=== PATIENT | female | born 1945 | race Caucasian/White ===

== ENCOUNTER → 2019-07-07 | Outpatient (CLI) | payer OTHER ==
[~2019-07-07] MED LIST: ASPI-555 PO; CHOL100044 PO; CLOP75TA14 PO; GLIM2TAB3 PO; HYDR12.54 PO; INSLAN SQ; LIRA0.6P SQ; LOSA50TA64 PO; METF-444 PO; METO25TA3 PO; PRAV40TA3 PO
== END | disposition home or self-care (01) ==
LOC: SHCH 09:15
PROVIDERS: ATTEND Internal Medicine Cardiovascular Disease
DX: I06.9 Rheumatic aortic valve disease, unspecified (principal); I10 Essential (primary) hypertension
CPT/HCPCS: 93306

== ENCOUNTER → 2019-08-02 | Outpatient (CLI) | payer OTHER ==
[~2019-08-02] MED LIST changes: -GLIM2TAB3 PO; +GLIM2TAB4 PO
== END | disposition home or self-care (01) ==
LOC: RAH 13:06
PROVIDERS: ATTEND Internal Medicine Cardiovascular Disease
DX: I65.23 Occlusion and stenosis of bilateral carotid arteries (principal); I10 Essential (primary) hypertension
CPT/HCPCS: 93880

== ENCOUNTER 2023-01-31 00:32 | Emergency (ER) | payer MEDICARE, OTHER ==
[~2023-01-31] VITALS: Ht 157.5 cm; Wt 83.0 kg
[~2023-01-31 00:32] MED LIST changes: -ASPI-555 PO; +ASPI-556 PO; +CLOP-31 PO; -CLOP75TA14 PO; +GLIM2TAB30 PO; -GLIM2TAB4 PO
[2023-01-31 01:14] LABS: BASOPHILS % (AUTO) 0.4 % (0.0-5.0); EOSINOPHILS % (AUTO) 1.9 % (0.0-8.0); HEMATOCRIT 40.8 % (36-48); LYMPHOCYTES % (AUTO) 41.1 % (21.0-51.0); MEAN CORPUSCULAR HEMOGLOBIN 27.4 pg (27.0-33.0); MEAN CORPUSCULAR HGB CONC 32.6 g/dL (32.0-36.0); MONOCYTES % (AUTO) 8.4 % (3.0-13.0); NEUTROPHILS % (AUTO) 48.1 % (40.0-77.0); PLATELET COUNT (AUTO) 242 K/uL (130-400); RED BLOOD CELL COUNT(AUTO) 4.86 MIL/uL (4.00-5.50); RED CELL DISTRIBUTION WIDTH 13.8 % (11.0-15.5); WHITE BLOOD COUNT (AUTO) 6.8 K/uL (4.8-10.8)
[2023-01-31 01:22] LABS: CREATININE 1.4 mg/dL (0.5-1.5)
[2023-01-31 01:27] LABS: ALBUMIN 3.8 g/dL (3.5-5.0); TOTAL PROTEIN, SERUM 6.6 g/dL (6.0-8.3)
[2023-01-31 01:33] LABS: INR 0.93 (0.85-1.15); PROTHROMBIN TIME 10.2 SEC (9.6-11.6)
[2023-01-31 01:34] LABS: PARTIAL THROMBOPLASTIN TIME 24.2 SEC (26.3-35.5)
[2023-01-31 01:59] LABS: APPEARANCE,URINE CLEAR (CLEAR); BILIRUBIN,URINE NEGATIVE (NEGATIVE); COLOR,URINE LIGHT-YELLOW (YELLOW); GLUCOSE, URINE (UA) 30 mg/dL (NEGATIVE); KETONES,URINE NEGATIVE (NEGATIVE); LEUKOCYTE ESTERASE ,URINE NEGATIVE Leu/uL (NEGATIVE); NITRATE,URINE NEGATIVE (NEGATIVE); OCCULT BLOOD,URINE NEGATIVE (NEGATIVE); PH,URINE 5.5 (5.0-8.0); PROTEIN,URINE NEGATIVE (NEGATIVE); UROBILINOGEN,URINE 0.2 mg/dL (0.2-1.0)
[2023-01-31] MEDS ORDERED: 0.9%NACL 1000ML 1,000 ML IV ONE (02:00)
[2023-01-31] MEDS ORDERED: PROCHLORPERAZINE 10MG/2ML INJ IV ONE (02:00)
[2023-01-31] MEDS ORDERED: DiphenhydrAMINE HCL 50 MG/ML VIAL IV ONE (02:00)
[2023-01-31 03:00] VITALS: BP 142/82
[2023-01-31] MEDS ORDERED: PROC5TAB54 PO (03:11)
== END 2023-01-31 03:23 | disposition home or self-care (01) ==
LOC: EDH 00:32
DX: G43.909 Migraine, unspecified, not intractable, without status migrainosus (principal); I10 Essential (primary) hypertension; E11.40 Type 2 diabetes mellitus with diabetic neuropathy, unspecified; E86.0 Dehydration; Z79.899 Other long term (current) drug therapy; Z79.82 Long term (current) use of aspirin; Z79.84 Long term (current) use of oral hypoglycemic drugs; Z90.49 Acquired absence of other specified parts of digestive tract; Z98.890 Other specified postprocedural states; Z88.8 Allergy status to other drugs, medicaments and biological substances; Z88.6 Allergy status to analgesic agent
CPT/HCPCS: 99285; 96374; 70450; 71045; 96361; 96375; 82550; 84484; 80053; 83880; 85025; 85610; 85730; 86850; 86900; 86901; 82948; 81003; 36415; 93005; J1200; J7030; J0780

== ENCOUNTER 2023-04-05 23:08 | Emergency (ER) | payer MEDICARE ==
[~2023-04-05] VITALS: Ht 157.5 cm; Wt 77.1 kg
[~2023-04-05 23:08] MED LIST changes: +PROC5TAB54 PO
[2023-04-05] MEDS ORDERED: ACETAMINOPHEN 500 MG TABLET PO ONE (23:30)
[2023-04-06 00:16] LABS: BASOPHILS % (AUTO) 0.5 % (0.0-5.0); EOSINOPHILS % (AUTO) 0.8 % (0.0-8.0); HEMATOCRIT 41.7 % (36-48); LYMPHOCYTES % (AUTO) 12.8 % (21.0-51.0); MEAN CORPUSCULAR HEMOGLOBIN 27.9 pg (27.0-33.0); MEAN CORPUSCULAR HGB CONC 32.6 g/dL (32.0-36.0); MEAN CORPUSCULAR VOLUME 85.6 fL (79-99); MONOCYTES % (AUTO) 9.1 % (3.0-13.0); NEUTROPHILS % (AUTO) 76.4 % (40.0-77.0); PLATELET COUNT (AUTO) 240 K/uL (130-400); RED BLOOD CELL COUNT(AUTO) 4.87 MIL/uL (4.00-5.50); RED CELL DISTRIBUTION WIDTH 13.9 % (11.0-15.5); WHITE BLOOD COUNT (AUTO) 8.5 K/uL (4.8-10.8)
[2023-04-06 00:30] LABS: APPEARANCE,URINE CLEAR (CLEAR); BILIRUBIN,URINE NEGATIVE (NEGATIVE); COLOR,URINE LIGHT-YELLOW (YELLOW); GLUCOSE, URINE (UA) >=1000 mg/dL (NEGATIVE); KETONES,URINE NEGATIVE (NEGATIVE); LEUKOCYTE ESTERASE ,URINE NEGATIVE Leu/uL (NEGATIVE); NITRATE,URINE NEGATIVE (NEGATIVE); OCCULT BLOOD,URINE NEGATIVE (NEGATIVE); PROTEIN,URINE NEGATIVE (NEGATIVE); UROBILINOGEN,URINE 0.2 mg/dL (0.2-1.0)
[2023-04-06 00:32] LABS: CREATININE 1.2 mg/dL (0.5-1.5); POTASSIUM 4.7 mmol/L (3.5-5.1)
[2023-04-06 00:33] LABS: MUCUS,URINE RARE LPF (None Seen)
[2023-04-06 00:38] LABS: ALBUMIN 3.9 g/dL (3.5-5.0); TOTAL PROTEIN, SERUM 7.5 g/dL (6.0-8.3)
[2023-04-06] MEDS ORDERED: LOSA100T59 PO (00:55)
[2023-04-06] MEDS ORDERED: GABA-529 PO (00:55)
[2023-04-06] MEDS ORDERED: SITA1TBM7 PO (00:55)
[2023-04-06] MEDS ORDERED: INSU100I24 SQ (00:55)
[2023-04-06] MEDS ORDERED: ATOR40TA71 PO (00:55)
[2023-04-06] MEDS ORDERED: COLL1CAP PO (00:55)
[2023-04-06] MEDS ORDERED: GLIP10TA9 PO (00:55)
[2023-04-06] MEDS ORDERED: MAGN500C4 PO (00:55)
[2023-04-06] MEDS ORDERED: FURO20TA4 PO (00:55)
[2023-04-06] MEDS ORDERED: CHOL100020 PO (00:55)
[2023-04-06] MEDS ORDERED: AEC81 PO (00:55)
[2023-04-06] MEDS ORDERED: ALBUTEROL INHALER 90MCG/INH IH PRN (01:00)
[2023-04-06] MEDS ORDERED: INSULIN HUMULIN R 100 UNIT/ML 3ML SQ ONE (01:00)
[2023-04-06] MEDS ORDERED: BENZONATATE 100 MG CAPSULE PO ONE (01:00)
[2023-04-06] MEDS ORDERED: ALBUTEROL INHALER 90MCG/INH IH ONE (01:35)
[2023-04-06] MEDS ORDERED: NIRM1TAB PO (02:21)
[2023-04-06 02:29] VITALS: BP 172/65
== END 2023-04-06 02:30 | disposition home or self-care (01) ==
LOC: EDH 23:08
DX: U07.1 COVID-19 (principal); R50.9 Fever, unspecified; E11.65 Type 2 diabetes mellitus with hyperglycemia; I10 Essential (primary) hypertension; Z90.49 Acquired absence of other specified parts of digestive tract; Z90.710 Acquired absence of both cervix and uterus; Z79.82 Long term (current) use of aspirin; Z79.84 Long term (current) use of oral hypoglycemic drugs; Z98.890 Other specified postprocedural states
CPT/HCPCS: 99284; 87635; 80053; 85025; 87804 ×2; 83605; 81001; 36415; 71045; C9803; J1815; 96372